=== PATIENT | female | born 1990 ===

== ENCOUNTER 2025-04-08 07:30 | Inpatient (IN) | payer OTHER ==
[~2025-04-08] VITALS: Ht 99.1 cm; Wt 83.9 kg
[2025-04-08 08:10] VITALS: BP 138/96
[2025-04-08 08:46] LABS: BASO % 0.4 % (0.1-1.2); EOS # 0.04 (0.04-0.54); EOS % 0.8 % (0.7-7.0); LYMPH # 1.15 (1.18-3.74); LYMPH % 24.0 % (19.3-53.1); MEAN PLATELET VOLUME 10.70 fl (9.4-12.4); MONO # 0.40 (0.24-0.82); MONO % 8.4 % (4.7-12.5); NEUT # 3.17 (1.56-6.13); NEUT % 66.2 % (34.0-71.1); RED CELL DISTRIBUTION WIDTH 22.3 % (11.6-14.4)
[2025-04-08 08:50] LABS: URINE APPEARANCE Cloudy; URINE BILIRRUBIN Negative (NEGATIVE); URINE BLOOD Large; URINE COLOR Orange; URINE GLUCOSE Negative (NEGATIVE); URINE KETONE Negative (NEGATIVE); URINE LEUKOCYTE Trace; URINE NITRATE Negative; URINE PROTEIN Trace (NEGATIVE); URINE UROBILINOGEN 0.2 E.U./dl
[2025-04-08 08:54] LABS: URINE BACTERIA 222.7 uL (0.0-1933); URINE EPITHELIAL CELLS 3.0 uL (0.0-38.8); URINE WBC 20.5 uL (0.0-23.2)
[2025-04-08 09:01] LABS: URINE CAST 0.00 uL (0.0-1.40); URINE RBC > 10558.9 uL (0.0-20.8)
[2025-04-08 09:10] LABS: INR 1.0
[2025-04-08 09:28] LABS: ALT/SGPT 35.0 U/L (12-78); AST/SGOT 20.0 U/L (15-37); BILIRUBIN TOTAL 0.2 mg/dL (0.3-1.2); BUN CREA RATIO 17.0 (7.0-25.0); CREATININE SERUM 0.58 mg/dL (0.55-1.02); GFR 119.72; GLOBULINA 4.0 G/DL (2.4-3.5); GLUCOSE FASTING 88.0 mg/dL (65-100); OSMOLALITY SERUM 280.0 MOSM/KG (275-295)
[2025-04-08 09:39] LABS: RH POSITIVE
[2025-04-23] MEDS ORDERED: CEFAZOLIN SODIUM 1,000 MG VIAL IV ONE (08:45)
[2025-04-23] MEDS ORDERED: METRONIDAZOLE/SODIUM CHLORIDE 500 MG/100 ML PIGGYBACK IV ONE (08:45)
[2025-04-23] MEDS ORDERED: POVIDONE-IODINE 118 ML BOTT TOP ONE (08:45)
[2025-04-23] MEDS ORDERED: SUGAMMADEX SODIUM 200 MG/2 ML VIAL IV ONE (10:45)
[2025-04-23] MEDS ORDERED: RINGERS SOLUTION,LACTATED 1,000 ML IV SCH (11:15)
[2025-04-23] MEDS ORDERED: KETOROLAC TROMETHAMINE 30 MG VIAL IV SCH (12:00)
[2025-04-23] MEDS ORDERED: ACETAMINOPHEN 500 MG GEL..CAP PO SCH (12:00)
[2025-04-23] MEDS ORDERED: GABAPENTIN 300 MG CAPSULE PO SCH (13:00)
[2025-04-23] MEDS ORDERED: ONDANSETRON HCL 2 MG/ML VIAL IV SCH (14:00)
[2025-04-23 14:17] VITALS: BP 126/80
[2025-04-23 16:59] VITALS: BP 131/75
[2025-04-23 23:50] VITALS: BP 128/72
[2025-04-24 06:41] LABS: BASO % 0.1 % (0.1-1.2); EOS # 0.01 (0.04-0.54); EOS % 0.1 % (0.7-7.0); LYMPH # 1.33 (1.18-3.74); LYMPH % 13.3 % (19.3-53.1); MEAN PLATELET VOLUME 10.70 fl (9.4-12.4); MONO # 0.91 (0.24-0.82); MONO % 9.1 % (4.7-12.5); NEUT # 7.69 (1.56-6.13); NEUT % 77.1 % (34.0-71.1); RED CELL DISTRIBUTION WIDTH 19.5 % (11.6-14.4)
[2025-04-24 08:31] VITALS: BP 121/71
== END 2025-04-24 09:29 | disposition home or self-care (01) | DRG 743 ==
LOC: SURH 04-16 07:30 → O/R 04-23 05:19 → OB/GYN 04-23 13:57
PROVIDERS: ADMIT Student in an Organized Health Care Education/Training Program; ATTEND Student in an Organized Health Care Education/Training Program
PROC: 0UT74ZZ Resection of Bilateral Fallopian Tubes, Percutaneous Endoscopic Approach (ICD-10-PCS; 2025-04-23)
PROC: 0TJB8ZZ Inspection of Bladder, Via Natural or Artificial Opening Endoscopic (ICD-10-PCS; 2025-04-23)
PROC: 0UT94ZZ Resection of Uterus, Percutaneous Endoscopic Approach (ICD-10-PCS; principal; 2025-04-23 12:00)
DX: D25.1 Intramural leiomyoma of uterus (principal); D25.2 Subserosal leiomyoma of uterus; D25.0 Submucous leiomyoma of uterus; R10.2 Pelvic and perineal pain; N94.4 Primary dysmenorrhea; Z90.710 Acquired absence of both cervix and uterus; N80.03 Adenomyosis of the uterus